=== PATIENT | male | born 1990 | race Caucasian/White ===

== ENCOUNTER 2025-03-06 18:45 | Emergency (ER) | payer BC ==
[2025-03-06] MEDS: Glucagon,Human Recombinant 1 MG Vial IVPUSH ONE (19:06)
[2025-03-06] MEDS: Sodium Chloride 0.9% 10 ML Syringe FLUSH PRN (19:07)
== END 2025-03-06 19:40 | disposition home or self-care (01) ==
LOC: LL.ED 18:45
DX: I10 Essential (primary) hypertension (principal); Z88.8 Allergy status to other drugs, medicaments and biological substances
CPT/HCPCS: 96374; 99283; J1610